=== PATIENT | male | born 1995 | race Native Hawaiian/Other Pacific Islander ===

== ENCOUNTER 2022-06-18 20:54 | Emergency (ER) | payer BC ==
[~2022-06-18] VITALS: Ht 182.9 cm; Wt 99.8 kg
[2022-06-19 00:54] VITALS: BP 118/78; TEMP 97.9
== END 2022-06-19 01:00 | disposition home or self-care (01) ==
LOC: ED 20:54
PROC: 0HQGXZZ Repair Left Hand Skin, External Approach (ICD-10-PCS; principal; 2022-06-18)
DX: S61.217A Laceration without foreign body of left little finger without damage to nail, initial encounter (principal); S60.222A Contusion of left hand, initial encounter; W29.8XXA Contact with other powered hand tools and household machinery, initial encounter; Y92.89 Other specified places as the place of occurrence of the external cause
CPT/HCPCS: 90471; 96372; 99283; J0696